=== PATIENT | female | born 1960 | race Caucasian/White ===

== ENCOUNTER → 2017-10-14 | Outpatient (CLI) | payer BC | END | disposition home or self-care (01) | LOC: MAMMO 08:19 | DX: Z12.31 Encounter for screening mammogram for malignant neoplasm of breast (principal) | CPT/HCPCS: 77067 ==

== ENCOUNTER → 2018-12-27 | Outpatient (CLI) | payer BC ==
--- NOTE | 2018-12-27 10:38 | RAD ---
DATE: 12/27/2018 EXAM: MAMMO CHANTALE SCREENING BILATERAL HISTORY: Routine screening COMPARISON: 10/14/2017 This study was interpreted with the benefit of Computerized Aided Detection (CAD). Breast Density: HETERO The breast parenchyma is heterogenously dense, which could reduce sensitivity of mammography. Breast parenchyma level C. FINDINGS: 2-D and 3-D tomosynthesis imaging was performed in CC and MLO projections. No new or enlarging breast densities are seen. No suspicious microcalcifications are evident. IMPRESSION: Stable mammograms without evidence of malignancy. BI-RADS CATEGORY: 1 NEGATIVE RECOMMENDED FOLLOW-UP: 12M 12 MONTH FOLLOW-UP PQRS compliance statement: Patient information was entered into a reminder system with a target due date for the next mammogram. Mammography is a sensitive method for finding small breast cancers, but it does not detect them all and is not a substitute for careful clinical examination. A negative mammogram does not negate a clinically suspicious finding and should not result in delay in biopsying a clinically suspicious abnormality. "Our facility is accredited by the [employer]ammography [employer]."
== END | disposition home or self-care (01) ==
LOC: MAMMO 09:48
PROVIDERS: ATTEND Registered Nurse
DX: Z12.31 Encounter for screening mammogram for malignant neoplasm of breast (principal)
CPT/HCPCS: 77063; 77067

== ENCOUNTER → 2019-04-16 | Outpatient (CLI) | payer BC ==
--- NOTE | 2019-04-16 16:42 | RAD ---
EXAM: Lumbar spine MRI without contrast. HISTORY: Sciatica. TECHNIQUE: Multiplanar, multisequence magnetic resonance imaging of the lumbar spine was performed without contrast. COMPARISON: Thoracic spine MRI dated 03/16/2016. FINDINGS: There is mild lumbar levoscoliosis. There is grade 1 anterolisthesis of L5 on S1, measuring 2 mm. There is degenerative endplate remodeling primarily along the right aspect of L4-L5 and left aspect of L5-S1. This corresponds with the levels of maximum scoliotic curvature. There are few incidental osseous hemangiomas. There is no suspicious osseous lesion. The conus terminates at L1-L2. At L1-L2, there is a left paracentral disc protrusion. There is no stenosis. At L2-L3, there is no stenosis. At L3-L4, there is minimal facet arthropathy. There is no stenosis. At L4-L5, there is a left paracentral to foraminal disc protrusion and 3 mm superior and 5 and inferior extrusion which effaces the left lateral recess and abuts the traversing left nerve roots. This is superimposed on a right lateral predominant disc bulge and endplate remodeling. There is mild bilateral facet arthropathy. There is mild central canal stenosis. At L5-S1, there is a left paracentral to foraminal disc protrusion and 2 mm superior extrusion superimposed on left lateral predominant endplate remodeling. There is minimal facet arthropathy. There is slight narrowing of the left lateral recess with near abutment of the traversing left S1 nerve root. IMPRESSION: 1. L4-L5: Left paracentral to foraminal disc protrusion with superimposed extrusion resulting in effacement of the left lateral recess, abutment of the traversing left nerve roots and mild central canal stenosis. 2. L5-S1: Left paracentral to foraminal disc protrusion with superimposed extrusion resulting in narrowing of the left lateral recess and near abutment of the traversing left S1 nerve root. 2. Mild scoliosis. Electronically signed by: Shawnee Garduno MD (04/16/2019 4:39 PM) [place] [id number]
== END | disposition home or self-care (01) ==
LOC: MRI 15:26
PROVIDERS: ATTEND Family Medicine
DX: M43.17 Spondylolisthesis, lumbosacral region (principal); M51.27 Other intervertebral disc displacement, lumbosacral region; M48.07 Spinal stenosis, lumbosacral region; M41.86 Other forms of scoliosis, lumbar region; Z90.49 Acquired absence of other specified parts of digestive tract; M12.88 Other specific arthropathies, not elsewhere classified, other specified site
CPT/HCPCS: 72148

== ENCOUNTER → 2019-06-22 | Outpatient (CLI) | payer BC ==
[~2019-06-22] MED LIST: AMIT75TA PO; BACL10TA PO; DULO60CA6 PO; IOHEXOL 180 MG/ML 10 ML VIAL. ONE; MELO7.5T29 PO; METO25TA4 PO; PANT40TA77 PO; PREG150C PO; methylPREDNISolone ACETATE 40 MG/ML VIAL. ONE; methylPREDNISolone ACETATE 80 MG/ML VIAL. ONE
--- NOTE | 2019-06-22 20:23 | PAIN ---
DATE OF SERVICE: 06/22/2019 INITIAL CONSULTATION FOR PAIN CLINIC CHIEF COMPLAINT: Low back and left lower extremity pain. HISTORY OF PRESENT ILLNESS: This is a 59-year-old female who presents with history of pain in the low back and left lower extremity for about 01/27/2019, not a result of any specific injury or accident she is aware of, but it is getting worse since that time. In the low back, the patient reports it is radiating to posterior gluteus, posterior thigh, posterolateral calf, lateral thigh as well as the medial and anterior thigh, into the lateral posterior calf and posterior sole of the foot; worse with walking, standing, changing positions; better with sitting or lying down, it awakens her from sleep about once or twice a night. The patient reports it does not affect her bowel or bladder control, does affect her ability to walk. She is not using any assistive devices, however. The patient describes the pain as constant, sharp, shooting, radiating, numbness, tingling, changes during the day, worse with activity, aching as well. The patient rates her disability rating from 0-10, 10 being the worst, as a 6 with family, home responsibilities, recreation, social activity and occupation; 8 with sexual behaviors; 4 with self-care; 2 with life support activities. The patient did have MRI scan of the lumbar spine showing at L4-L5 and L5-S1, demonstrating significant foraminal disk protrusion and effacing the left lateral recess abutting the transversing left nerve root at L4-L5 as well as L5-S1 with flattened area of the left lateral recess with near abutment of the traversing left S1 nerve root. The patient reports significant fatigability to the lower extremity on the left side only, but no overt motor loss. The patient has tried stretching and strengthening exercises, has done physical therapy in the past, nothing recently. She has tried ibuprofen, Tylenol, also oxycodone, which does decrease the pain. PAST MEDICAL HISTORY: Significant for hypertension, depression. PREVIOUS SURGERY: Include left knee scope, x2, cholecystectomy, appendectomy, spinal cord stimulator placed for thoracic and upper back and neck pain with about 80% improvement and generator replacement in 2016. CURRENT MEDICATIONS: Include amitriptyline, meloxicam, metoprolol, pregabalin, duloxetine, pantoprazole, baclofen. ALLERGIES: The patient has no known drug allergies. FAMILY HISTORY: Significant for breast cancer. SOCIAL HISTORY: The patient does not drink alcohol, does not smoke, does not use any illegal, illicit or recreational substances. The patient is , lives with her , lives locally in [place], [place] and is a preschool disability teacher. REVIEW OF SYSTEMS: The patient's review of systems is positive for those items mentioned in history of present illness. All systems reviewed and otherwise negative. It is complete, full and well documented on the patient's chart. PHYSICAL EXAMINATION: VITAL SIGNS: The patient's blood pressure is 112/69, pulse 111, respirations 16, temperature 98.2 degrees Fahrenheit, height 5 feet 3 inches, weight is 174 pounds. GENERAL: The patient is awake, alert, oriented, appropriate, very pleasant demeanor. HEENT: Shows normocephalic, atraumatic. The patient is wearing eyeglasses. Extraocular movements are intact and symmetrical. Oral cavity: Mucous membranes moist and pink. Dentition is intact. NECK: Shows anterior throat supple without palpable lymphadenopathy noted. Swallow reflex symmetrical. CHEST: Shows normal on inspection. Breath sounds clear to auscultation bilaterally. HEART: Shows S1, S2 clear. No murmurs auscultated. ABDOMEN: Soft, nontender, nondistended. No palpable organomegaly is noted. No rebound or guarding demonstrated. BACK: Shows spine grossly in the midline, normal-appearing cervical lordotic curvature, thoracic kyphotic curvature and lumbar lordotic curvature. Lumbar paraspinous muscle shows symmetrical on inspection, with palpation shows some moderate tenderness diffusely bilaterally going diffusely without significant radiation. The patient has good rotational motion of lumbar spine, both laterally as well as extension and flexion without difficulty. No tenderness over the sacrum and sacroiliac regions or the spinous processes. EXTREMITIES: Lower extremities show deep tendon reflexes 2+ in the patellar and 1+ tendo-calcaneus tendons are equal. Motor exam is strong with 5/5 dorsiflexion, extension, quadriceps and hamstring flexion and symmetrical. Peripheral pulses are 1+ posterior tibia. No peripheral edema is noted. Lower extremities are warm and dry to touch, equal in color and appearance. The patient has a mild straight leg raise positive on the left at about 40 degrees, decreased with knee flexion and right side is negative. Gaenslen's and Cornell's maneuvers are negative bilaterally. The patient is able to stand, stand on her toes without difficulty or loss of balance, walks with a normal-appearing gait, not using any assistive devices. Does not appear to favor the right or left lower extremity significantly. SKIN: The patient's skin shows warm and dry, good turgor. No edema. No sores, rashes or bruising throughout. IMPRESSION: 1. This is a 59-year-old female with approximate 4-month history of increasing pain, low back and left lower extremity in a radicular fashion. 2. MRI scan of lumbar spine as noted. 3. History of hypertension. PLAN: Options were discussed with the patient including conservative medical management, physical therapies, interventional techniques. We discussed lumbar epidural steroid injection. The patient would like to proceed with interventional techniques. Risks were discussed including but not limited to bleeding, infection, possibility of epidural hematoma, subsequent neurological compromise, dural puncture, headaches, spinal cord and/or nerve damage, side effects of steroid medication and poor results regarding pain control. The patient understands and wished to proceed. The patient will return to clinic in approximately 2 weeks for followup. She was counseled on return appointment, activity level and side effects to be aware of. DIAGNOSES: Lumbar radiculopathy with lumbar degenerative disk disease, lumbar spinal stenosis. PROCEDURE: Lumbar epidural steroid injection, translaminar approach at the L4-L5 level using C-arm fluoroscopic guidance under sterile prep and drape using local anesthetic. MEDICATION INJECTED: A total of 120 mg Depo-Medrol plus 10 mL of preservative-free normal saline and 2 mL of contrast. CONDITION AT DISCHARGE: Stable. The patient tolerated the procedure well, had no complications. YASMINE COHEN MD DR: BRITANY/milagros JOB#: [id number] / [id number] YUSUF Hunt MD
== END ==
LOC: PNCL 12:58
PROVIDERS: ATTEND Anesthesiology
DX: M51.16 Intervertebral disc disorders with radiculopathy, lumbar region (principal); M48.061 Spinal stenosis, lumbar region without neurogenic claudication; I10 Essential (primary) hypertension; F32.9 Major depressive disorder, single episode, unspecified; Z90.49 Acquired absence of other specified parts of digestive tract; Z98.890 Other specified postprocedural states
CPT/HCPCS: 62323; J1030; J1040; Q9965

== ENCOUNTER → 2019-07-16 | Outpatient (CLI) | payer BC ==
--- NOTE | 2019-07-16 14:39 | PAIN ---
DATE OF SERVICE: 07/16/2019 PROGRESS NOTE FOR PAIN CLINIC DIAGNOSES: Lumbar radiculopathy with lumbar degenerative disk disease and lumbar spinal stenosis. HISTORY OF PRESENT ILLNESS: The patient is a 59-year-old female who returns for followup status post lumbar epidural steroid injection x 1. The patient reports about 100% improvement for the first 10 days and the pain began to return gradually. She was bending down reaching forward and she noted some increased pain in the low back and into the left lower extremity as it was previously at posterior gluteus, lateral thigh, lateral anterior thigh, medial thigh on the left, some on the right as well, but mostly on the left side. The patient reports it has been much worse since that and was about a week ago. Reports her pain is an 8 on a scale of 10 at its worst over the past week, 6 on average, 5 at its least and is a 5 today. The patient reports it is radiating, constant, aching, sharp, shooting in the low back and the left leg primarily, but some on the right posterior gluteus as well. The patient reports it awakens her from sleep about every 5 hours. Initially, she increased her activity of walking, doing work activities, household activities, taking care of her granddaughters with much greater ease and comfort, now the pain is returning. The patient reports no new motor or sensory deficits, no new bowel or bladder incontinence or other complaints. PHYSICAL EXAMINATION: VITAL SIGNS: The patient's blood pressure 126/67, pulse 69, respirations 18, temperature 98.2 degrees Fahrenheit, height is 5 feet 3 inches, weighs 175 pounds. GENERAL: The patient is awake, alert, oriented, appropriate, very pleasant demeanor. HEENT: Shows normocephalic, atraumatic. Extraocular movements are intact and symmetrical. Oral cavity: Mucous membranes moist and pink. Dentition is intact. NECK: Shows anterior throat supple without palpable lymphadenopathy noted. Swallow reflex symmetrical. CHEST: Shows normal on inspection. Breath sounds are clear to auscultation bilaterally. HEART: Shows S1, S2 clear. No murmurs auscultated. ABDOMEN: Soft, nontender, nondistended. No palpable organomegaly is noted. No rebound or guarding demonstrated. BACK: The patient's back shows spine grossly in the midline. Slight exaggeration of thoracic kyphosis, some minor flattening of lumbar lordotic curvature. Lumbar paraspinous muscle shows symmetrical on inspection, on palpation shows some mild tenderness, but only diffusely without radiation. The patient shows good rotational motion of lumbar spine, both laterally as well as extension and flexion without significant difficulty. EXTREMITIES: The patient's lower extremities show deep tendon reflexes at 2+ in the patellar, 1+ tendo-calcaneus tendons. Motor exam is strong with 5/5 dorsiflexion, extension, quadriceps and hamstring flexion symmetrical. Peripheral pulses are 1+ posterior tibial. No peripheral edema is noted bilaterally. Options were discussed with the patient. The patient's old chart was reviewed as her current medication regimen updated. Current review of systems updated today as well. We will proceed with a second in the series of lumbar epidural steroid injection today with fluoroscopic guidance. Risks were again discussed including, but not limited to bleeding, infection, possibility of epidural hematoma, subsequent neurological compromise, dural puncture, headaches, spinal cord and/or nerve damage, side effects of steroid medication and poor results regarding pain control. The patient understands and wished to proceed. The patient will return to clinic in approximately 2 weeks for followup. She was counseled on return appointment, activity level and side effects to be aware of. DIAGNOSES: Lumbar radiculopathy with lumbar degenerative disk disease and lumbar spinal stenosis. PROCEDURE: Lumbar epidural steroid injection, translaminar approach at L4-L5 level using C-arm fluoroscopic guidance under sterile prep and drape using local anesthetic. MEDICATION INJECTED: A total of 120 mg Depo-Medrol plus 10 mL of preservative-free normal saline and 2 mL of contrast. CONDITION AT DISCHARGE: Stable. The patient tolerated the procedure well, had no complications. YASMINE COHEN MD DR: BRITANY/milagros JOB#: [id number] / [id number]
== END ==
LOC: PNCL 13:32
PROVIDERS: ATTEND Anesthesiology
DX: M51.16 Intervertebral disc disorders with radiculopathy, lumbar region (principal); M48.061 Spinal stenosis, lumbar region without neurogenic claudication
CPT/HCPCS: 62323; J1030; J1040; Q9965

== ENCOUNTER → 2021-01-08 | Outpatient (CLI) | payer BC ==
[~2021-01-08] MED LIST changes: -IOHEXOL 180 MG/ML 10 ML VIAL. ONE; -methylPREDNISolone ACETATE 40 MG/ML VIAL. ONE; -methylPREDNISolone ACETATE 80 MG/ML VIAL. ONE
--- NOTE | 2021-01-08 14:33 | RAD ---
DATE: January 08, 2021 EXAM: MAMMO CHANTALE SCREENING BILATERAL HISTORY: Screening study. COMPARISON: 2014 through 2018 This study was interpreted with the benefit of Computerized Aided Detection (CAD). FINDINGS: Breast Density: HETERO The breast parenchyma is heterogenously dense, which could reduce sensitivity of mammography. Breast parenchyma level C.. There are no dominant suspicious masses, suspicious microcalcifications or evidence of architectural distortion. IMPRESSION: No mammographic indicators for malignancy. BI-RADS CATEGORY: 1 NEGATIVE RECOMMENDED FOLLOW-UP: 12M 12 MONTH FOLLOW-UP PQRS compliance statement: Patient information was entered into a reminder system with a target due date January 09, 2022 for the next mammogram. Mammography is a sensitive method for finding small breast cancers, but it does not detect them all and is not a substitute for careful clinical examination. A negative mammogram does not negate a clinically suspicious finding and should not result in delay in biopsying a clinically suspicious abnormality. "Our facility is accredited by the [employer] Mammography Program." The patient's breast density may affect the ability of mammography to detect breast cancer. There are 4 categories of breast density, A, B, C and D. Breast density A means that most of the breast tissue is replaced with adipose tissue and therefore is not dense. Breast density B means that the breast tissue is mildly dense and scattered. Breast density C means that the breast tissue is heterogeneously dense. Breast density D means that the breast tissue is very dense. Breast densities especially C and D may decrease the sensitivity of mammography to detect breast cancer. Therefore, the patient may benefit from 3-D breast mammography (3D breast tomography) as a part of their screening mammogram. Insurance may or may not pay for this additional imaging. The patient's breast density based on today's mammogram is category C.
== END ==
LOC: MAMMO 12:08
PROVIDERS: ATTEND Physician Assistant Medical
DX: Z12.31 Encounter for screening mammogram for malignant neoplasm of breast (principal)
CPT/HCPCS: 77063; 77067